=== PATIENT | female | born 1995 | race Two or more races ===

== ENCOUNTER 2021-09-14 05:15 | Inpatient (IN) | payer OTHER ==
[~2021-09-14] VITALS: Ht 165.1 cm; Wt 70.8 kg
[2021-09-14] MEDS ORDERED: PRENATAL TABLE1 EAC3 PO (05:54)
== END 2021-09-16 14:10 | disposition home or self-care (01) | DRG 807 ==
LOC: LDR 05:15 → OB/GYN 05:15
PROVIDERS: ADMIT Obstetrics & Gynecology; ATTEND Obstetrics & Gynecology
PROC: 10E0XZZ Delivery of Products of Conception, External Approach (ICD-10-PCS; principal; 2021-09-14)
PROC: 0HQ9XZZ Repair Perineum Skin, External Approach (ICD-10-PCS; 2021-09-14)
PROC: 4A1HXCZ Monitoring of Products of Conception, Cardiac Rate, External Approach (ICD-10-PCS; 2021-09-14)
DX: O70.0 First degree perineal laceration during delivery (principal); Z37.0 Single live birth; Z3A.36 36 weeks gestation of pregnancy; Z20.822 Contact with and (suspected) exposure to COVID-19

== ENCOUNTER 2021-09-21 18:31 | Emergency (ER) | payer OTHER ==
[~2021-09-21] VITALS: Ht 165.1 cm; Wt 70.8 kg
[~2021-09-21 18:31] MED LIST: PRENATAL TABLE1 EAC3 PO
== END 2021-09-21 22:25 | disposition home or self-care (01) ==
LOC: ER 18:31
DX: R42 Dizziness and giddiness (principal); R11.0 Nausea